=== PATIENT | male | born 1960 | race Caucasian/White ===

== ENCOUNTER → 2024-01-13 10:40 | Outpatient (REF) | payer BC, SELFPAY | LOC: EMG 10:40 | PROVIDERS: ATTENDING PHYSICIAN Podiatrist; FAMILY PHYSICIAN Internal Medicine | DX: M72.2 Plantar fascial fibromatosis (principal); G57.53 Tarsal tunnel syndrome, bilateral lower limbs | CPT/HCPCS: 95886; 95911 ==

== ENCOUNTER 2024-01-26 15:14 | Emergency (ER) | payer BC, SELFPAY ==
[2024-01-26 15:16] VITALS: BP 142/79
--- NOTE | 2024-01-26 23:34 | ED.MUSCINJ ---
HPI-Injury
General
Chief Complaint: Musculo-Skeletal Complaint
Source: patient
Exam Limitations: none
Time Seen by Provider: 01/26/24 17:13
Nursing documentation reviewed up to this point in time: agreed with
History of Present Illness-Injury
Is this injury a work related problem?: No
Is pt an associate of [facility]/[place]?: No
Initial Injury comments:
Accidentally fell down basement steps. Complains of pain to his left knee. Injury occurred just [employer]
Past History
Past History
ED Past Medical History: None
ED Past Surgical History: None
Review of Systems
Review of Systems
Allergies reviewed?: Yes
All Other Systems: ROS reviewed and negative except as documented in HPI and ROS
Constitutional: Reports no symptoms
Musculoskeletal: Reports joint pain (Pain to left knee)
Skin: Reports no symptoms
Neurological: Reports no symptoms
Psychiatric: Reports no symptoms
Injury Course
Orders/Labs/Results
Orders:
Orders
01/26/24 15:18
CR Femur - Left Min 2 Vw Urgent
Comment:
Reason For Exam: pain
Knee, Left 4 or More Views [CR Knee - Left 4 Or More View*] Urgent
Comment:
Reason For Exam: pain
01/26/24 17:51
Crutches-Treatment ONCE
Knee Immobilizer Left-Treatmen ONCE
ED Attending Note
-
Portions of this chart may have been created with voice recognition software.� Occasional wrong word or��sound alike� substitutions may have occurred due to the inherent limitations of voice recognition software.
Discharge Plan
Departure
Patient Disposition: Home (Routine Discharge)
Date of Disposition: 01/26/24
Time of Disposition: 17:52
Patient with high blood pressure during this ER visit?: No
Condition: Good
Covid-19: Not Applicable
Discharge Problem:
Quadriceps tendon rupture
Instructions: How to Use Crutches, Knee Immobilizer (DC), Ibuprofen, Using Cold for Pain, Quadriceps and Patellar Tendon Injuries
Prescriptions:
No Action
oxycodone-acetaminophen 5 MG/325 MG tablet
1 tab PO Q6HPRN PRN (Reason: pain) Qty: 7 0RF
tamsulosin 0.4 MG capsule
0.4 mg PO DAILY Qty: 7 0RF
diclofenac sodium 75 MG tablet,delayed release (DR/EC)
75 mg PO BID Qty: 14 0RF
Referrals:
Ministerio Vaughn MD [Active] - Call in 1-3 days for appt
UNKNOWN - PT DOES,NOT KNOW [Family Provider] -
Interventions
Interventions:
*Risk Screen - Suicide Last Done: 01/26/24 15:16
*General Assessment Last Done: 01/26/24 15:16
*Neglect/Abuse Screening Last Done: 01/26/24 15:16
*ED COVID-19 Vaccine History Last Done: 01/26/24 15:16
*Nursing Disposition Last Done: 01/26/24 18:12
ED-Musculoskeletal Assessment Last Done: 01/26/24 16:20
Discharge Date and Time
Discharge Date/Time: 01/26/24 18:14
Print Language: NORWEGIAN
== END 2024-01-26 18:14 | disposition home or self-care (01) ==
LOC: EMR 15:14
PROVIDERS: EMERGENCY PHYSICIAN Emergency Medicine
DX: S76.112A Strain of left quadriceps muscle, fascia and tendon, initial encounter (principal); W10.9XXA Fall (on) (from) unspecified stairs and steps, initial encounter
CPT/HCPCS: 99283; 29505; 73552; 73564

== ENCOUNTER → 2024-01-30 11:43 | Outpatient (REF) | payer BC, SELFPAY ==
[2024-01-30 12:27] LABS: % Basophils 0.4 % (0-2); % Eosinophils 0.5 % (0-6); % Immature Granulocytes 0.4 % (0-0.5); % Lymphocytes 18.7 % (20.5-51.1); % Monocytes 6.6 % (1.7-9.3); % Neutrophils 73.4 % (42.2-75.2); Absolute Eosinophils 0.1 10^3/uL (0-0.7); Absolute Lymphocytes 1.8 10^3/uL (1.2-3.4); Absolute Monocytes 0.6 10^3/uL (0.1-0.6); Hematocrit 48.9 % (39.0-52.0); Hemoglobin 16.4 g/dL (13.0-18.0); Mean Corp Hgb Conc. 33.5 g/dL (33.0-37.0); Mean Corpuscular Hgb 30.4 pg (27.0-31.0); Mean Corpuscular Volume 90.6 fL (80.0-94.0); Mean Platelet Volume 12.1 fL (7.4-10.4); Nucleated Red Blood Cells % 0 % (-); Platelet Count 188 10^3/uL (130-400); Red Cell Dist. Width 13.5 % (11.5-14.5); White Blood Cell Count 9.6 10^3/uL (4.8-10.8)
[2024-01-30 12:45] LABS: Blood Urea Nitrogen 25 mg/dl (9-20); Calcium 9.7 mg/dl (8.4-10.2); Carbon Dioxide 28 mmol/L (22-30); Chloride 99 mmol/L (98-107); Glucose 145 mg/dl (70-99); Potassium 4.6 mmol/L (3.5-5.1); Sodium 138 mmol/L (135-145); eGFR > 60.00
== END ==
LOC: RCS 11:43
PROVIDERS: ATTENDING PHYSICIAN Orthopaedic Surgery; FAMILY PHYSICIAN Internal Medicine
DX: Z01.818 Encounter for other preprocedural examination (principal)
CPT/HCPCS: 36415; 80048; 85025; 93005

== ENCOUNTER 2025-05-09 12:17 | Emergency (ER) | payer BC, SELFPAY ==
[2025-05-09 12:21] VITALS: BP 174/86
[2025-05-09 12:35] VITALS: BMI 27.5
--- NOTE | 2025-05-09 13:07 | ED.GENMED ---
History of Present Illness
General
Chief Complaint: Chest Pain
Source: patient
Time Seen by Provider: 05/09/25 13:05
History of Present Illness
History of Present Illness:
64-year-old male presents to the emergency room after having an episode of shakiness, sweatiness, feeling he might pass out. Patient had turned his head while driving to look in the next [place] before changing lanes when this event occurred. He felt
he may have had some chest pain after he started to feel poorly. Now he feels back to baseline. No other complaints at this time.
Past History
Past History
ED Past Medical History: None
ED Past Surgical History: None
Phy Exam
Physical Exam
Physical Exam:
General: Awake, Alert, Oriented X3. No acute distress.
Vitals: unremarkable
Head: Atraumatic
Eyes: Pupils equal, EOMI
Throat: Airway intact, no exudates
Neck: Trachea midline
Lungs: Clear and equal b/l
Heart: Regular rate, no murmurs
Abd: Soft, Nontender, No pulsatile mass
Neuro: Cranial nerves intact, muscle strength equal bilaterally, cerebellar exam normal
Skin: Warm, dry, no rash
Extremities: pulses equal b/l, no edema
Scores
Heart Score for Chest Pain Patients
STEMI patient?: No
History: Slightly or Non-Suspicious
ECG: Nonspecific Repolarization
Age: >45 - <65 years
Risk Factors: 1 or 2 Risk Factors
Troponin: </= Normal Limit
Heart Score for Chest Pain Patients: 3
Heart Score Risk: 2.5% MACE over next 6 weeks
Course
Orders/Labs/Results
Orders:
Orders
05/09/25 12:20
EKG [Electrocardiogram (*1)] Urgent
Reason for Study: Chest Pain
EKG- Treatment ONCE
05/09/25 13:18
CT Head & Neck Angio W/wo IV Urgent
Comment:
Reason For Exam: dizzy, near syncope with neck movement
05/09/25 13:23
Basic Metabolic Panel Urgent
Complete Blood Count/With Diff Urgent
Troponin I Urgent
Abnormal Lab Results
05/09/25
13:23
MCH 31.1 H pg
(27.0-31.0)
MPV 12.4 H fL
(7.4-10.4)
Lymphocytes % 18.4 L %
(20.5-51.1)
Glucose 109 H mg/dl
(70-99)
05/09/25 13:23
05/09/25 13:23
Vital Signs
Initial and Last Documented VS:
Initial Vital Signs
Temp Pulse Resp BP Pulse Ox
98.1 F 74 14 174/86 98
05/09/25 12:21 05/09/25 12:21 05/09/25 12:21 05/09/25 12:21 05/09/25 12:21
Last Documented Vital Signs
Temp Pulse Resp BP Pulse Ox
98.1 F 72 18 174/86 96
05/09/25 12:21 05/09/25 12:33 05/09/25 14:00 05/09/25 12:21 05/09/25 13:09
MDM/Problems Addressed
Differential Diagnosis Includes:
Benign positional vertigo, allergic vertebral stenosis, dysrhythmia, ACS
MDM/Problems Addressed:
Patient presents after having an episode of dizziness and chest pain which occurred after turning his head in an extreme fashion. Workup here shows normal labs including a troponin. CTA was obtained which shows no significant stenosis. Patient
has remained asymptomatic here in the emergency room. He is able to ambulate without difficulty. Stable for discharge and outpatient follow-up as there is no evidence for an unstable process requiring hospitalization.
*Radiology
Radiology exam reviewed: radiology read reviewed
*Pulse Oximetry
SaO2: 96
Oxygen Mode of Delivery: Room air
Patient hypoxic: no
*EKG
Interpreted by ED Provider?: Yes
Interpretation: normal
Comparison EKG: no changes
Heart Rate: 79
Rate: normal
Rhythm: sinus
[place]: normal axis
Interval: normal interval
QRS Pattern: normal QRS
Ischemia: no ischemia
*Carpenter Mate Interpretation
Rate: normal
Interpretation: normal
Rhythm: sinus
*Critical Care Note
Total Time (30-74mins, 75-104mins- exclusive of procedures): Not Applicable
ED Attending Note
-
Portions of this chart may have been created with voice recognition software.� Occasional wrong word or��sound alike� substitutions may have occurred due to the inherent limitations of voice recognition software.
Discharge Plan
Departure
Patient Disposition: Home (Routine Discharge)
Date of Disposition: 05/09/25
Time of Disposition: 16:58
Patient with high blood pressure during this ER visit?: Yes
Discharge Problem:
Dizziness, Chest pain
Instructions: Dizziness in adults - ED (DC), Chest Pain CBC Follow Up, BLOOD PRESSURE
Prescriptions:
No Action
oxycodone-acetaminophen 5 MG/325 MG tablet
1 tab PO Q6HPRN PRN (Reason: pain) Qty: 7 0RF
tamsulosin 0.4 MG capsule
0.4 mg PO DAILY Qty: 7 0RF
diclofenac sodium 75 MG tablet,delayed release (DR/EC)
75 mg PO BID Qty: 14 0RF
Referrals:
UNKNOWN - PT DOES,NOT KNOW [Unknown Provider]
Interventions
Interventions:
*Risk Screen - Suicide Last Done: 05/09/25 12:21
*General Assessment Last Done: 05/09/25 12:21
*Neglect/Abuse Screening Last Done: 05/09/25 12:21
*ED- Fall Risk Assessment Last Done: 05/09/25 12:37
*ED COVID-19 Vaccine History Last Done: 05/09/25 12:21
*ED Influenza Vaccine History Last Done: 05/09/25 12:24
*Nursing Disposition Last Done: 05/09/25 17:31
ED- Cardiac Assessment Last Done: 05/09/25 12:56
Discharge Date and Time
Discharge Date/Time: 05/09/25 17:32
Print Language: KINY[place]AN[place]
[2025-05-09 13:32] LABS: Hematocrit 46.6 % (39.0-52.0); Hemoglobin 16.2 g/dL (13.0-18.0); Mean Corp Hgb Conc. 34.8 g/dL (33.0-37.0); Mean Corpuscular Volume 89.4 fL (80.0-94.0); Nucleated Red Blood Cells % 0 % (-); Platelet Count 143 10^3/uL (130-400); Red Cell Dist. Width 13.6 % (11.5-14.5)
[2025-05-09 14:11] LABS: Blood Urea Nitrogen 18 mg/dl (9-20); Calcium 9.5 mg/dl (8.4-10.2); Carbon Dioxide 29 mmol/L (22-30); Chloride 104 mmol/L (98-107); Estimated Creatinine Clearance 78 ml/min; Glucose 109 mg/dl (70-99); Potassium 4.2 mmol/L (3.5-5.1); Sodium 141 mmol/L (135-145); eGFR > 60.00
[2025-05-09 14:18] LABS: Troponin I < 0.012 ng/ml
== END 2025-05-09 17:32 | disposition home or self-care (01) ==
LOC: EMR 12:17
PROVIDERS: EMERGENCY PHYSICIAN Emergency Medicine; FAMILY PHYSICIAN Internal Medicine
DX: R07.9 Chest pain, unspecified (principal); R42 Dizziness and giddiness
CPT/HCPCS: 99284; 70496; 70498; 80048; 84484; 85025; 93005; Q9967

== ENCOUNTER → 2025-05-31 07:52 | Outpatient (REF) | payer BC, SELFPAY | LOC: RCS 07:52 | PROVIDERS: ATTENDING PHYSICIAN Internal Medicine Cardiovascular Disease; FAMILY PHYSICIAN Internal Medicine | DX: R07.2 Precordial pain (principal) | CPT/HCPCS: 93306 ==

== ENCOUNTER → 2025-06-05 11:23 | Outpatient (REF) | payer BC, SELFPAY | LOC: HWRCS 11:23 | PROVIDERS: ATTENDING PHYSICIAN Internal Medicine Cardiovascular Disease; FAMILY PHYSICIAN Internal Medicine | DX: R07.2 Precordial pain (principal) | CPT/HCPCS: 78452; 93017; A9500; J2785 ==

== ENCOUNTER → 2025-06-10 08:24 | Outpatient (REF) | payer BC, SELFPAY | LOC: RCS 08:24 | PROVIDERS: ATTENDING PHYSICIAN Internal Medicine Cardiovascular Disease; FAMILY PHYSICIAN Internal Medicine | DX: R07.2 Precordial pain (principal); R00.2 Palpitations; R42 Dizziness and giddiness | CPT/HCPCS: 93225; 93226 ==